=== PATIENT | male | born 1960 | race Hispanic/Latino ===

== ENCOUNTER 2017-04-26 06:08 | Day surgery (SDC) | payer OTHER ==
[2017-04-26] MEDS ORDERED: ECOTRIN PO ONE (06:33)
[2017-04-26] MEDS ORDERED: NACL 0.9% 500 ML 500 ML IV SCH (07:00)
[2017-04-26 07:03] LABS: Basophils % (Auto) 1.4 % (0.0-1.8); Eosinophils % (Auto) 2.9 % (0.0-4.3); Hematocrit 45.7 % (35.5-45.6); Hemoglobin 15.5 gm/dl (11.8-15.2); Mean Corpuscular HGB Conc 34 % (32-34); Mean Corpuscular Hemoglobin 29 pg (28-32); Mean Corpuscular Volume 85 fl (84-94); Platelet Count 223 K/mm3 (140-440); Red Blood Count 5.36 M/mm3 (3.65-5.03); Red Cell Distribution Width 15.3 % (13.2-15.2); White Blood Count 8.2 K/mm3 (4.5-11.0)
[2017-04-26 07:13] LABS: Anion Gap 18 mmol/L; BUN/Creatinine Ratio 16.66; Blood Urea Nitrogen 20 mg/dL (9-20); Carbon Dioxide 26 mmol/L (22-30); Chloride 101.2 mmol/L (98-107); Glucose 150 mg/dL (75-100); Potassium 3.4 mmol/L (3.6-5.0); Sodium 142 mmol/L (137-145)
[2017-04-26 07:23] LABS: INR 1.08 (0.87-1.13)
[2017-04-26] MEDS ORDERED: K-DUR PO ONE (08:30)
[2017-04-26] MEDS ORDERED: HEPARIN/NS 5000 UNIT/500ML(CATH LAB) 1,000 ML IR ONE (08:32)
[2017-04-26] MEDS ORDERED: NITROGLYCERIN SYRINGE 3 ML ONE (08:33)
[2017-04-26] MEDS: SUBLIMAZE ONE ×2 (08:59→09:13)
[2017-04-26] MEDS: VERSED ONE ×2 (08:59→09:13)
[2017-04-26] MEDS: HEPARIN 10,000 UNITS/10 ML ONE ×2 (09:00→09:20)
[2017-04-26] MEDS: XYLOCAINE 2% INFILTRATI ONE ×2 (09:00→09:18)
[2017-04-26] MEDS: CALAN ONE ×2 (09:00→09:20)
--- NOTE | 2017-04-26 09:51 | Prelim Cardiac Cath Report ---
Preliminary Cath Report - Hemodynamic Findings Cardiac Diagram: 1 - large caliber, non-dominant vessel without significant disease 2 - large caliber vessel without significant disease 3 - large caliber dominant vessel with luminal irregularities. No significant disease 4 - large caliber vessel with luminal irregularities without significant disease Left Ventricular(LV): EF 15-20% with global hypokinesis - Other Findings Estimated blood loss: minimal Dominance: left Estimated Ejection Fraction: 15 Coronary Anatomy: Left main: large caliber vessel that bifurcates into the left anterior descending coronary artery and the left circumflex coronary artery. LAD: large caliber vessel with luminal irregularities without significant disease LCx: moderate to large caliber vessel without significant disease RCA: large caliber vessel without significant disease Post Diagnosis: Severe global left ventricular dysfunction without significant coronary disease. Recommendations: medical therapy
[2017-04-26 12:20] VITALS: BP 134/92
== END 2017-04-26 12:57 | disposition home or self-care (01) ==
LOC: OPU 06:08
PROVIDERS: ATTEND Internal Medicine Cardiovascular Disease
DX: R94.31 Abnormal electrocardiogram [ECG] [EKG] (principal); I11.0 Hypertensive heart disease with heart failure; I50.9 Heart failure, unspecified; I48.0 Paroxysmal atrial fibrillation; E11.59 Type 2 diabetes mellitus with other circulatory complications; F17.220 Nicotine dependence, chewing tobacco, uncomplicated; Z79.899 Other long term (current) drug therapy; Z79.84 Long term (current) use of oral hypoglycemic drugs; Z86.19 Personal history of other infectious and parasitic diseases; Z98.890 Other specified postprocedural states; Z82.49 Family history of ischemic heart disease and other diseases of the circulatory system; Z80.9 Family history of malignant neoplasm, unspecified
CPT/HCPCS: 36415; 80048; 85025; 85610; 85730; 93005; 93010; 93458; C1887; C1894; J1644; J2250; J3010; J7040; Q9967